=== PATIENT | female | born 1970 | race Caucasian/White ===

== ENCOUNTER 2017-06-24 22:36 | Emergency (ER) | payer BC ==
[2017-06-24 23:50] LABS: APPEARANCE,URINE CLEAR; BILIRUBIN,URINE NEGATIVE (NEGATIVE); GLUCOSE, URINE NEGATIVE (NEGATIVE); KETONES,URINE 20 mg/dL (NEGATIVE); LEUKOCYTE ESTERASE,URINE NEGATIVE (NEGATIVE); NITRITE,URINE NEGATIVE (NEGATIVE); PROTEIN,URINE NEGATIVE (NEGATIVE); URINE SPECIFIC GRAVITY 1.003; UROBILINOGEN,URINE NEGATIVE mg/dL (<2.0)
[2017-06-25] MEDS ORDERED: ONDANSETRON HCL INJ/PF 4 MG/2 ML SDV IV ONE (00:25)
[2017-06-25] MEDS ORDERED: NORMAL SALINE 1000 ML 1,000 ML IV ONE ×2 (00:26→03:11)
[2017-06-25] MEDS ORDERED: MORPHINE SULFATE 10 MG/ML INJ IV ONE ×2 (00:26→01:23)
--- NOTE | 2017-06-25 00:32 | ER Document Report ---
ED Medical Screen (RME) - General Chief Complaint: Abdominal Pain Stated Complaint: ABDOMINAL PAIN Time Seen by Provider: 06/25/17 00:25 - HPI Notes: 06/25/17 00:28 Patient is a 46-year-old female who presents the ED complaining of right lower quadrant pain 1 day that does not radiate. Patient states that she has also had intermittent nausea without vomiting and a decreased appetite. Pt reports subjective intermittent fevers as well. Patient also reports being diagnosed with an ovarian cyst last Saturday, but states that this pain is much more severe. Patient has a medical history significant for an ectopic that ruptured the right fallopian tube and tubal ligation of the left. LMP was at [facility] and was abnormal for her which is why she sought treatment with OBGYN. Denies any headache, URI, sore throat, chest pain, palpitations, syncope , cough, shortness of breath, wheeze, dyspnea, urinary retention, dysuria, hematuria, back pain, or rash. I have treated and performed a rapid initial assessment of this patient. A comprehensive ED assessment and evaluation of the patient, analysis of test results and completion of medical decision making process will be conducted by additional ED providers. - Related Data Allergies/Adverse Reactions: No Known Allergies Allergy (Verified 06/24/17 22:36) Past Medical History - Social History Frequency of alcohol use: Social Drug Abuse: None Renal/ Medical History: Denies: Hx Peritoneal Dialysis Physical Exam - Vital signs Vitals: Temp Pulse Resp BP Pulse Ox 99.0 F 114 H 16 134/80 H 98 06/24/17 23:11 06/24/17 23:11 06/24/17 23:11 06/24/17 23:11 06/24/17 23:11 - Respiratory Respiratory status: No respiratory distress Breath sounds: Normal - Cardiovascular Rhythm: Regular Heart sounds: Normal auscultation - Abdominal Bowel sounds: Normal Course - Vital Signs Vital signs: Temp Pulse Resp BP Pulse Ox 99.0 F 114 H 16 134/80 H 98 06/24/17 23:11 06/24/17 23:11 06/24/17 23:11 06/24/17 23:11 06/24/17 23:11 - Laboratory Laboratory results interpreted by me: 06/24/17 23:17 Urine Ketones 20 H
[2017-06-25 00:57] LABS: ABSOLUTE LYMPHOCYTES (AUTO) 0.8 10^3/uL (0.5-4.7); ABSOLUTE MONOCYTES (AUTO) 0.4 10^3/uL (0.1-1.4); ABSOLUTE NEUT (AUTO) 6.6 10^3/uL (1.7-8.2); BASOPHILS % (AUTO) 0.4 % (0-2); EOSINOPHILS % (AUTO) 0.2 % (0-6); HEMOGLOBIN 13.6 g/dL (12.0-15.5); HGB HCT DIFFERENCE 1.8; LYMPHOCYTES % (AUTO) 9.7 % (13-45); MEAN CORPUSCULAR HEMOGLOBIN 36.1 pg (27.0-33.4); MEAN CORPUSCULAR HGB CONC 34.9 g/dL (32.0-36.0); MEAN CORPUSCULAR VOLUME 104 fl (80-97); MONOCYTES % (AUTO) 5.7 % (3-13); RED BLOOD COUNT 3.76 10^6/uL (3.72-5.28); RED CELL DISTRIBUTION WIDTH 13.1 % (11.5-14.0); WHITE BLOOD COUNT 7.9 10^3/uL (4.0-10.5)
[2017-06-25 01:36] LABS: ALANINE AMINOTRANSFERASE 29 U/L (9-52); ALBUMIN 4.7 g/dL (3.5-5.0); ALKALINE PHOSPHATASE 80 U/L (38-126); ANION GAP 13 (5-19); ASPARTATE AMINO TRANSFERASE 36 U/L (14-36); BILIRUBIN,DIRECT 0.5 mg/dL (0.0-0.4); BILIRUBIN,TOTAL 0.5 mg/dL (0.2-1.3); BLOOD UREA NITROGEN 6 mg/dL (7-20); CALCIUM 9.4 mg/dL (8.4-10.2); CARBON DIOXIDE 24 mmol/L (22-30); CHLORIDE 98 mmol/L (98-107); GLUCOSE 90 mg/dL (75-110); LIPASE 179.2 U/L (23-300); POTASSIUM 3.4 mmol/L (3.6-5.0); SODIUM 135.3 mmol/L (137-145); TOTAL PROTEIN 8.7 g/dL (6.3-8.2)
[2017-06-25] MEDS ORDERED: FENTANYL CITRATE INJ/PF 100 MCG/2 ML AMPUL IV ONE (03:00)
--- NOTE | 2017-06-25 03:17 | RADIOLOGY REPORT (SQ) ---
EXAM DESCRIPTION: U/S NON OB PEL TV W/DOPPLER CLINICAL HISTORY: 46 years Female, right pelvic pain, history of large ovarian cyst. Metorrhagia. COMPARISON: None. TECHNIQUE: Complete pelvic ultrasound with transabdominal and transvaginal imaging. Limited color and spectral Doppler imaging of the ovaries. FINDINGS: The uterus measures 11.8 x 8.6 x 6.6 cm. Endometrial thickness of 0.6 cm. Multiple heterogeneous structures within the uterine myometrium compatible with fibroids, the largest measures 7.8 x 6.0 x 6.6 cm and is an intramural fibroid in the posterior myometrial wall. The cervix measures 2.7 cm and is closed. Nabothian cysts. The right ovary measures 4.7 x 2.2 x 2.3 cm. The left ovary measures 3.4 x 1.9 x 2.6 cm. No sonographic abnormalities identified. Color and spectral Doppler images demonstrate flow within the ovaries bilaterally. No free pelvic fluid. Transabdominal images demonstrate no additional findings. IMPRESSION: 1. Multiple fibroids within the uterus. The largest measures 7.8 cm in greatest dimension.
--- NOTE | 2017-06-25 03:53 | ER Document Report ---
ED General - General Chief Complaint: Abdominal Pain Stated Complaint: ABDOMINAL PAIN Time Seen by Provider: 06/25/17 00:25 Notes: Patient is a pleasant 46-year-old female who presents with complaint of severe right lower quadrant abdominal pain. She says she has had some intermittent pain however the she has really noticed true pain consistent with what she is feeling now over the last 12-24 hours. Some nausea. Few episodes of diarrhea. No blood in her stool or emesis. She was seen by her him tech recently had an ultrasound which showed a 7 cm cyst on the right.. This appears of also been irregular. No abnormal vaginal discharge or bleeding. No dysuria. No urinary frequency. No other complaints this time. - Related Data Allergies/Adverse Reactions: No Known Allergies Allergy (Verified 06/24/17 22:36) Past Medical History - Social History Smoking Status: Current Every Day Smoker Frequency of alcohol use: Social Drug Abuse: None Family History: Reviewed & Not Pertinent Patient has suicidal ideation: No Patient has homicidal ideation: No Renal/ Medical History: Denies: Hx Peritoneal Dialysis Review of Systems - Review of Systems Notes: My Normal Review Basic REVIEW OF SYSTEMS: CONSTITUTIONAL : Denies fever, chills, or sweats. Denies recent illness. EENT: Denies eye, ear, throat, or mouth pain or symptoms. Denies nasal or sinus congestion. CARDIOVASCULAR: Denies chest pain. RESPIRATORY: Denies cough, cold, or chest congestion. Denies shortness of breath, difficulty breathing, or wheezing. GASTROINTESTINAL: Lower quadrant abdominal pain. Nausea GENITOURINARY: Denies difficulty urinating, painful urination, burning, frequency, or blood in urine. FEMALE GENITOURINARY: Denies vaginal bleeding or abnormal vaginal discharge. MUSCULOSKELETAL: Denies neck or back pain or joint pain or swelling. SKIN: Denies rash or skin lesions. NEUROLOGICAL: Denies altered mental status or loss of consciousness. Denies headache. Denies weakness or paralysis or loss of use of either side. Denies problems with gait or speech. Denies sensory or motor loss. ALL OTHER SYSTEMS REVIEWED AND NEGATIVE. Physical Exam - Vital signs Vitals: Temp Pulse Resp BP Pulse Ox 99.0 F 114 H 16 134/80 H 98 06/24/17 23:11 06/24/17 23:11 06/24/17 23:11 06/24/17 23:11 06/24/17 23:11 - Notes Notes: General Appearance: Well nourished, alert, cooperative, no acute distress, moderate obvious discomfort. Vitals: reviewed, See vital signs table. Head: no swelling or tenderness to the head Eyes: PERRL, EOMI, Conjuctiva clear Mouth: No decreasd moisture Throat: No tonsillar inflammation, No airway obstruction, No lymphadenopathy Lungs: No wheezing, No rales, No rhonci, No accessory muscle use, good air exchange bilaterally. Heart: Normal rate, Regular rythm, No murmur, no rub Abdomen: Normal BS, soft, No rigidity, moderate abdominal tenderness to palpation of the right lower quadrant., mildguarding, no rebound, no abdominal masses, no organomegaly Extremities: strength 5/5 in all extremities, good pulses in all extremities, no swelling or tenderness in the extremities, no edema. Skin: warm, dry, appropriate color, no rash Neuro: speech clear, oriented x 3, normal affect, responds appropriately to questions. Course - Re-evaluation Re-evalutation: 06/25/17 07:36 Because patient continued to have some recurrent pain after the ultrasound I did obtain a CT scan. Mother concern was that sometimes fibroids can cause pain but he had to be very large needs to have some sort of mass-effect because of pain. I want to make sure that we are not missing appendicitis even though her white blood cell count was normal. CT scan shows no evidence of appendicitis. It just shows again that she has very large fibroids. Ultrasound showed no evidence of ovarian torsion. Her blood work is otherwise normal-appearing. Patient is not feeling improved after the pain medicine. Abdomen is soft but still somewhat painful to palpation. There is no rebound tenderness. No rigidity. I did speak with Dr. Walters, oncologist on-call, and she agrees that the patient's will most likely ultimately need a hysterectomy. She requested outpatient follow-up with her in the office this week. I did explain this to the patient and she is agreeable to this. I talked to the patient and her at length. I informed him that the CT scan and ultrasound and blood work are all normal except for the large fibroid uterus. I informed him that still some concerns that sometimes fibroids typically do not cause much pain however medications he can with a very large and causing some form of mass-effect which may be what is going on with her. I said that being that the pain was more intense than what I typically like in regards to fibroids informed him that they should still have a very low threshold to return to the ER for reevaluation even though her workup was otherwise negative. I informed him that sometimes repeat workup can show a different answer and therefore they need to return to ER if she continues to have pain or if she has worsening pain or vomiting or fevers. and agree with plan and patient will be discharged home. Dictation of this chart was performed using voice recognition software; therefore, there may be some unintended grammatical errors. - Vital Signs Vital signs: Temp Pulse Resp BP Pulse Ox 98.4 F 78 14 130/72 H 99 06/25/17 07:09 06/25/17 07:09 06/25/17 07:09 06/25/17 07:09 06/25/17 07:09 - Laboratory Result Diagrams: 06/25/17 00:30 06/25/17 00:30 Laboratory results interpreted by me: 06/24/17 06/25/17 06/25/17 23:17 00:30 00:30 MCV 104 H MCH 36.1 H Seg Neutrophils % 84.0 H Lymphocytes % 9.7 L Sodium 135.3 L Potassium 3.4 L BUN 6 L Direct Bilirubin 0.5 H Total Protein 8.7 H Urine Ketones 20 H Discharge - Discharge Clinical Impression: Fibroid Abdominal pain Qualifiers: Abdominal location: right lower quadrant Qualified Code(s): R10.31 - Right lower quadrant pain Instructions: Oral Narcotic Medication ([facility]) Additional Instructions: Your ultrasound shows and CT scan show a large fibroid uterus. Your Ct scan did not show evidence of appendicitis. You have good blood flow to your ovaries. As discussed with you it is not typical for fibroids to cause a large amount of pain, but on rare occasions they can be painful when they get very large. I currently did not see another cause of your pain. I have spoken with Dr. Walters who agrees to see you in the office this week as you most likely will need a hysterectomy. I have prescribed morphine for you to take if your pain is not controlled by the ibuprofen. You must return to the ER for reevaluation if your pain continues to recur or if you have fevers, vomiting, or feel worse. Again this is very important as your pain can always be an early presentation of something not currently seen on your workup today. Prescriptions: Morphine Sulfate [Morphine Ir 15 mg Tablet] 15 mg PO Q6 PRN #15 tablet PRN Reason: pain Ondansetron [Zofran Odt 4 mg Tablet] 1 tab PO Q4H PRN #15 tab.rapdis PRN Reason: For Nausea/Vomiting Referrals: CHELSY WALTERS MD [ACTIVE STAFF] - Follow up in 3-5 days (Call the office this am for a close follow up appointment.)
--- NOTE | 2017-06-25 05:43 | RADIOLOGY REPORT (SQ) ---
EXAM DESCRIPTION: CT ABDOMEN AND PELVIS WITH CONTRAST CLINICAL HISTORY: RLQ abdominal pain COMPARISON: None Available. TECHNIQUE: CT of the abdomen and pelvis are performed during IV bolus administration of 100 mL of Isovue-370. Oral contrast administered. DLP: 665.82 mGycm FINDINGS: Abdomen: The liver has normal size and density. No intrahepatic mass or biliary dilatation. No calcified gallstones. The spleen, pancreas, and adrenal glands are unremarkable. The kidneys have normal size and contour without evidence of solid mass or hydronephrosis. The aorta and IVC have normal caliber and position. The portal vein patent. The proximal visceral and renal arteries are patent. No free intraperitoneal air. The stomach and duodenum have normal course. Pelvis: Heterogeneous contour of the uterus. There is an intramural fibroid measuring 7.9 cm in the posterior myometrium. Urinary bladder is unremarkable. No free pelvic fluid or lymphadenopathy. No dilated loops of large or small bowel. No evidence of appendicitis. The visualized lung bases are clear. No destructive bone lesions identified. IMPRESSION: 1. No acute inflammatory or obstructive abnormality identified. 2. Fibroid uterus. The largest fibroid measures 7.9 cm in greatest dimension and is located in the posterior uterine myometrium. This exam was performed according to our departmental dose-optimization program, which includes automated exposure control, adjustment of the mA and/or kV according to patient size and/or use of iterative reconstruction technique.
[2017-06-25 07:36] VITALS: BP 130/72
== END 2017-06-25 07:10 | disposition home or self-care (01) ==
LOC: ER 22:36
DX: D25.9 Leiomyoma of uterus, unspecified (principal); R10.31 Right lower quadrant pain; F17.200 Nicotine dependence, unspecified, uncomplicated
CPT/HCPCS: 96376; 99284; 96361; 96374; 96375; 36415; 87086; 83690; 85025; 81025; 80053; 81001; 76830; 93976; 74177; J3010; J2270; J2405; J7030

== ENCOUNTER 2017-08-01 08:02 | Day surgery (SDC) | payer BC ==
[2017-07-30 12:08] LABS: HEMATOCRIT 38.9 % (36.0-47.0); HEMOGLOBIN 13.1 g/dL (12.0-15.5); MEAN CORPUSCULAR HGB CONC 33.8 g/dL (32.0-36.0); MEAN CORPUSCULAR VOLUME 101 fl (80-97); PLATELET COUNT 338 10^3/uL (150-450); RED BLOOD COUNT 3.86 10^6/uL (3.72-5.28); RED CELL DISTRIBUTION WIDTH 13.6 % (11.5-14.0)
[2017-07-30 12:21] LABS: APPEARANCE,URINE SLIGHTLY-CLOUDY; BILIRUBIN,URINE NEGATIVE (NEGATIVE); COLOR,URINE YELLOW; GLUCOSE, URINE NEGATIVE (NEGATIVE); KETONES,URINE 20 mg/dL (NEGATIVE); LEUKOCYTE ESTERASE,URINE NEGATIVE (NEGATIVE); NITRITE,URINE NEGATIVE (NEGATIVE); PROTEIN,URINE 30 mg/dL (NEGATIVE); UROBILINOGEN,URINE NEGATIVE mg/dL (<2.0)
[2017-07-30 12:43] LABS: ALANINE AMINOTRANSFERASE 26 U/L (9-52); ALBUMIN 4.3 g/dL (3.5-5.0); ALKALINE PHOSPHATASE 46 U/L (38-126); ANION GAP 13 (5-19); ASPARTATE AMINO TRANSFERASE 33 U/L (14-36); BILIRUBIN,DIRECT 0.2 mg/dL (0.0-0.4); BILIRUBIN,TOTAL 0.3 mg/dL (0.2-1.3); BLOOD UREA NITROGEN 7 mg/dL (7-20); CALCIUM 9.3 mg/dL (8.4-10.2); CARBON DIOXIDE 21 mmol/L (22-30); CHLORIDE 104 mmol/L (98-107); GLUCOSE 65 mg/dL (75-110); POTASSIUM 4.5 mmol/L (3.6-5.0); SODIUM 138.3 mmol/L (137-145); TOTAL PROTEIN 7.5 g/dL (6.3-8.2)
--- NOTE | 2017-07-30 14:46 | RADIOLOGY REPORT (SQ) ---
EXAM DESCRIPTION: CHEST PA/LATERAL COMPLETED DATE/TIME: 07/30/2017 12:21 pm REASON FOR STUDY: PRE OP COMPARISON: None. EXAM PARAMETERS: NUMBER OF VIEWS: two views TECHNIQUE: Digital Frontal and Lateral radiographic views of the chest acquired. RADIATION DOSE: NA LIMITATIONS: none FINDINGS: LUNGS AND PLEURA: No opacities, masses or pneumothorax. No pleural effusion. MEDIASTINUM AND HILAR STRUCTURES: No masses or contour abnormalities. HEART AND VASCULAR STRUCTURES: Heart normal size. No evidence for failure. BONES: No acute findings. HARDWARE: None in the chest. OTHER: No other significant finding. IMPRESSION: NO SIGNIFICANT RADIOGRAPHIC FINDING IN THE CHEST. TECHNICAL DOCUMENTATION: JOB ID: [id number] [employer]- All Rights Reserved
--- NOTE | 2017-07-30 20:21 | EKG REPORT ---
SEVERITY:- NORMAL ECG - SINUS RHYTHM : Confirmed by: Yanely Rizo 30-Jul-2017 20:20:50
[~2017-08-01 08:02] MED LIST: CEFAZOLIN 1 GM/D5W RTU 1 GM/50 ML RTUPB IV PRN; LACTATED RINGERS 1000 ML IV PRN; LIDOCAINE 0.5% INJ-PF (5 MG/ML) 50 ML SDV SUBCUT PRN; SCOPOLAMINE HYDROBROMIDE 1.5 MG PATCH.TD72 TD PRN
[2017-08-01] MEDS ORDERED: FENTANYL CITRATE INJ/PF 100 MCG/2 ML AMPUL ONE ×3 (09:46→13:47)
[2017-08-01] MEDS ORDERED: MIDAZOLAM 2 MG/2 ML INJ ONE (09:47)
[2017-08-01] MEDS ORDERED: PROPOFOL INJ 200 MG/20 ML VIAL IV ONE (09:47)
[2017-08-01] MEDS ORDERED: ACETAMINOPHEN 100 ML IV ONE ×2 (09:47→18:00)
[2017-08-01] MEDS ORDERED: HYDROMORPHONE HCL INJ/PF 2 MG/ML AMPULE ONE (09:47)
[2017-08-01] MEDS ORDERED: LIDOCAINE 2% INJ-PF (20 MG/ML) 2 ML AMPUL ONE (10:34)
[2017-08-01] MEDS ORDERED: KETOROLAC TROMETHAMINE 60 MG/2 ML SDV ONE (10:34)
[2017-08-01] MEDS ORDERED: PHENYLEPHRINE HCL INJ/PF 10 MG/1 ML SDV ONE (10:34)
[2017-08-01] MEDS ORDERED: NEOSTIGMINE METHYLSULFATE 10 MG/10 ML VIAL ONE (10:34)
[2017-08-01] MEDS ORDERED: ONDANSETRON HCL INJ/PF 4 MG/2 ML SDV ONE (10:34)
[2017-08-01] MEDS ORDERED: DEXAMETHASONE SOD PHOSPHATE INJ 4 MG/1 ML VIAL ONE (10:34)
[2017-08-01] MEDS ORDERED: VECURONIUM BROMIDE INJ 10 MG VIAL IV ONE (10:34)
[2017-08-01] MEDS ORDERED: GLYCOPYRROLATE INJ 0.4 MG/2 ML VIAL ONE (10:34)
[2017-08-01] MEDS ORDERED: FENTANYL CITRATE INJ/PF 100 MCG/2 ML AMPUL IV PRN ×6 (10:40→15:18)
[2017-08-01] MEDS ORDERED: DIPHENHYDRAMINE HCL 50 MG/ML VIAL IV PRN ×2 (10:40→15:18)
[2017-08-01] MEDS ORDERED: ONDANSETRON HCL INJ/PF 4 MG/2 ML SDV IV PRN ×2 (10:40→15:18)
[2017-08-01] MEDS ORDERED: MEPERIDINE HCL/PF INJ 25 MG/1 ML DISP.SYRIN IV PRN ×2 (10:40→15:18)
[2017-08-01] MEDS ORDERED: MORPHINE SULFATE 10 MG/ML INJ IV PRN ×2 (10:40→15:18)
[2017-08-01] MEDS ORDERED: PROMETHAZINE HCL INJ 25 MG/1 ML VIAL IV PRN ×3 (10:40→15:42)
[2017-08-01] MEDS ORDERED: METRONIDAZOLE 500 MG/NS RTU 100 ML IV ONE (12:25)
[2017-08-01] MEDS: FENTANYL CITRATE INJ/PF 100 MCG/2 ML AMPUL ONE ×2 (14:55→15:01)
[2017-08-01] MEDS: MORPHINE SULFATE 10 MG/ML INJ ONE ×3 (15:20→15:40)
[2017-08-01] MEDS ORDERED: RINGERS SOLUTION,LACTATED 1,000 ML IV PRN (15:39)
[2017-08-01] MEDS ORDERED: IBUPROFEN 800 MG TABLET PO PRN (15:39)
[2017-08-01] MEDS: MORPHINE SULFATE 10 MG/ML INJ IV PRN ×3 (16:49→23:50)
--- NOTE | 2017-08-01 17:09 | OPERATIVE REPORT E ---
Operative Report NAME: HERNESTO ISBELL : 1970 AGE: 47Y DATE OF SURGERY: 08/01/2017 ROOM: PREOPERATIVE DIAGNOSES: 1. LEIOMYOMA. 2. ANEMIA. 3. ABNORMAL UTERINE BLEEDING. 4. CHRONIC PELVIC PAIN. POSTOPERATIVE DIAGNOSES: 1. LEIOMYOMA. 2. ANEMIA. 3. ABNORMAL UTERINE BLEEDING. 4. CHRONIC PELVIC PAIN. OPERATION: Robotic-assisted total laparoscopic hysterectomy. SURGEON: CHELSY WALTERS M.D. ANESTHESIA: Dr. Stephenson with general. ESTIMATED BLOOD LOSS: 400 mL. SPECIMENS REMOVED: Uterus and cervix. FINDINGS: Large posterior fibroid extending into the broad ligament, larger than the actual size of the uterus. The fallopian tubes seem to be absent for the most part bilaterally and the ovaries were normal in appearance. The uterus itself appeared to be approximately 10 weeks' size. The fibroid appeared to be approximately 8 to 9 cm. PROCEDURE: Patient was taken to the operating room, prepared and draped in normal sterile fashion in the dorsolithotomy position under sterile conditions. A Baez catheter was placed to gravity. A speculum was then placed into the vagina and the cervix was prepped with Betadine and grasped on the anterior lip with a single-toothed tenaculum. The cervix was then dilated to accommodate a medium V-Care, which was inserted without difficulty. Gloves were changed and attention was turned to the upper portion of the case, where an umbilical skin incision was made, approximately 2 cm, to accommodate a GelPort. This was done with a scalpel and carried through the underlying layer of fascia with Alli. The fascia was excised and extended laterally with Mayos to again extend approximately 2 cm. The GelPort was placed without difficulty in a normal fashion, and the abdomen was inflated with approximately 2 liters of CO2 gas. The patient was then placed into steep Trendelenburg. The camera was introduced through the GelPort and above findings were noted. The ureters were inspected and their locations were noted over the pelvic brim. Under direct visualization, two 5-mm ports were placed on either side of the umbilicus, approximately 10 cm. The abdomen was deflated and an Sergio morcellation bag was placed into the abdominal cavity and tied with 2 silk ties. This was placed into the right paracolic gutter. The abdomen was then reinflated with the GelPort in place. The robot was docked, and then I scrubbed and sat at the console. Beginning with the left adnexa, the fallopian tube remnant was removed using the vessel sealer, and the utero-ovarian ligament was transected using the vessel sealer. Following the contours of the uterus, I transected the uterine arteries and skeletonized these and pushed the ureters away from the fibroid uterus. I then started the bladder flap on the anterior aspect of cervix using monopolar scissors and blunt dissection. On the right adnexa, again removed the remnants of the fallopian tube using the vessel sealer. I then began skeletonizing the uretero-ovarian ligament away from the fibroid. The round ligament was also skeletonized away from the fibroid and continued skeletonization of the peritoneum away from the fibroid in order to get the ureter to drop away. The ureter was inspected several times during this skeletonization. I then completed the bladder flap on the anterior aspect of the cervix. The V-Care was noted through the mucosa on the anterior side of the uterus, and using this as a guide, I began colporrhaphy using the monopolar scissors, continuing to ligate vessels and tissue as needed with the vessel sealer until, at one point, the vessel sealer did indicate that it was no longer functioning, and this was removed and replaced with a bipolar fenestrated. The rest of the case was completed and the colporrhaphy was completed using these tools. Once the specimen was freed, it was placed cephalad, and then the monopolar scissors were replaced with the adama-needle catering driver to close the cuff with a V-Loc suture that was introduced through the assistance port. The suture was then cut and removed again through the assistance port, and we turned our attention to attempting to bag this specimen. The needle catering driver was replaced with the monopolar scissors once more, and the bag was located in the paracolic gutter. The silk ties were cut incidentally. The string that identified the bag and allowed for manipulation was unfortunately also cut. The plastic triangle that was on this string was then placed into the anterior cul-de-sac for location later. The bag was then manipulated, but we could not get it successfully around the specimen using the robot, so the robot was undocked and we began to attempt again bagging of the specimen laparoscopically. Again, we were unsuccessful with this, and after several tries of attempting to place the specimen into the bag, it was determined that we would continue to proceed with morcellation on the exterior of the patient, but without the bag in place. Therefore, the patient was placed more supine and the top layer of the GelPort was removed. We were able to visualize and palpate the specimen through the GelPort incision and was able to carefully grasp this with an Allis to bring it to the incision site. The plastic guard was then placed around the incision, and beginning with a C technique, I began morcellation of this specimen only exteriorly, bringing the specimen through this incision and using the guard as a guide. Once this specimen was completely morcellated, again exteriorly, the specimen was passed off the field. The GelPort was replaced, and laparoscopically, we found the piece of equipment and removed that, again through the GelPort. The abdomen was inspected once more and the ureters were again peristalsing normally. There were no signs of hydroureter. Therefore, the case was completed and the fascia was closed at the umbilicus using 0 Vicryl on a UR-6 needle. All 3 sites were then closed using 4-0 Vicryl. Patient tolerated procedure well. Sponge, lap and needle counts were correct x2, and the patient was taken to recovery in stable condition. DICTATING PHYSICIAN: CHELSY WALTERS M.D. [id number] PHY#: [id number] ID: [id number] JOB#: [id number] ACCT: [id number] cc:CHELSY WALTERS M.D. >
[2017-08-01] MEDS: KETOROLAC TROMETHAMINE INJ/PF 30 MG/1 ML SDV IV SCH (18:02)
[2017-08-01] MEDS ORDERED: RINGERS SOLUTION,LACTATED 1,000 ML IV ONE (19:30)
[2017-08-01] MEDS: OXYCODONE-ACETAMINOPHEN 5-325 MG TABLET PO PRN (20:59)
[2017-08-02] MEDS: KETOROLAC TROMETHAMINE INJ/PF 30 MG/1 ML SDV IV SCH ×2 (01:35→09:52)
[2017-08-02] MEDS: OXYCODONE-ACETAMINOPHEN 5-325 MG TABLET PO PRN ×2 (02:15→13:24)
[2017-08-02] MEDS: MORPHINE SULFATE 10 MG/ML INJ IV PRN ×2 (05:18→08:43)
[2017-08-02 06:33] LABS: HEMATOCRIT 29.4 % (36.0-47.0); MEAN CORPUSCULAR HEMOGLOBIN 34.1 pg (27.0-33.4); MEAN CORPUSCULAR HGB CONC 33.8 g/dL (32.0-36.0); MEAN CORPUSCULAR VOLUME 101 fl (80-97); PLATELET COUNT 253 10^3/uL (150-450); RED BLOOD COUNT 2.91 10^6/uL (3.72-5.28); RED CELL DISTRIBUTION WIDTH 13.6 % (11.5-14.0)
[2017-08-02 06:38] LABS: HEMOGLOBIN 9.9 g/dL (12.0-15.5)
--- NOTE | 2017-08-02 12:44 | PDOC DISCHARGE SUMMARY ---
General - Admit/Disc Date/PCP Admission Date/Primary Care Provider: LOGAN ALVA MD Discharge Date: 08/02/17 - Discharge Diagnosis (1) Abnormal uterine bleeding Is this a current diagnosis for this admission?: Yes (2) Pelvic pain Is this a current diagnosis for this admission?: Yes (3) Leiomyoma of body of uterus Is this a current diagnosis for this admission?: Yes (4) Leiomyoma of cervix Is this a current diagnosis for this admission?: Yes - Additional Information Home Medications: Morphine Sulfate [Morphine Ir 15 mg Tablet] 15 mg PO Q6 PRN #15 tablet 06/25/17 Ascorbic Acid/Multivit-Min [Emergen-C Immune Plus Packet] 1 tab PO DAILY Alprazolam [Xanax] 0.5 mg PO ASDIR PRN 08/01/17 Multivitamin [Daily Multiple Vitamin] 1 each PO DAILY 08/01/17 Oxycodone HCl/Acetaminophen [Percocet 5-325 mg Tablet] 1 tab PO ASDIR PRN History of Present Illness History of Present Illness: HERNESTO ISBELL is a 47 year old female Hospital Course Hospital Course: underwent RATLH w/ b/l salpingectomy. doing well. uop adequate. tolerating diet. mild nausea only Physical Exam - Physical Exam Vital Signs: Temp Pulse Resp BP Pulse Ox 97.5 F 98 15 135/72 H 100 08/02/17 11:38 08/02/17 11:38 08/02/17 11:38 08/02/17 11:38 08/02/17 11:38 Intake & Output 08/01/17 08/02/17 08/03/17 06:59 06:59 06:59 Intake Total 4250 Output Total 925 Balance 3325 Weight 59.42 kg General appearance: PRESENT: no acute distress, cooperative GI/Abdominal exam: PRESENT: normal bowel sounds, soft, tenderness - appropriate for post op period. incisions c/d/intact nondistended. Result Laboratory Results: 08/02/17 04:59 07/30/17 11:14 08/02/17 04:59 WBC 12.0 H RBC 2.91 L Hgb 9.9 L D Hct 29.4 L MCV 101 H MCH 34.1 H MCHC 33.8 RDW 13.6 Plt Count 253 Impressions: Chest X-Ray 07/30/17 11:39 IMPRESSION: NO SIGNIFICANT RADIOGRAPHIC FINDING IN THE CHEST. Plan Discharge Plan: discharge home with precautions. will send home with diflucan to use prn yeast infection and antiemetics.
[2017-08-02 13:04] VITALS: BP 135/93
== END 2017-08-02 14:05 | disposition home or self-care (01) ==
LOC: OROUT 08:02 → 2S 16:25 → OROUT 08-02 14:05
PROVIDERS: ATTEND Obstetrics & Gynecology
PROC: 0UT74ZZ Resection of Bilateral Fallopian Tubes, Percutaneous Endoscopic Approach (ICD-10-PCS; 2017-08-01)
PROC: 8E0W4CZ Robotic Assisted Procedure of Trunk Region, Percutaneous Endoscopic Approach (ICD-10-PCS; 2017-08-01)
PROC: 0UT94ZZ Resection of Uterus, Percutaneous Endoscopic Approach (ICD-10-PCS; principal; 2017-08-01 10:00)
DX: N92.1 Excessive and frequent menstruation with irregular cycle (principal); D25.1 Intramural leiomyoma of uterus; G89.29 Other chronic pain; R10.2 Pelvic and perineal pain; F17.210 Nicotine dependence, cigarettes, uncomplicated; D64.9 Anemia, unspecified; Z79.899 Other long term (current) drug therapy
CPT/HCPCS: 58573; S2900; 36415; 71046; 80053; 81001; 840; 84703; 85027; 86850; 86900; 86901; 88307; 93005; 93010; J0131; J0690; J1100; J1170; J1885; J2250; J2270; J2370; J2405; J2550; J2704; J3010; J3490